=== PATIENT | male | born 1990 | race African-American/Black ===

== ENCOUNTER 2020-10-02 06:42 | Emergency (ER) | payer OTHER ==
[~2020-10-02] VITALS: Ht 190.5 cm; Wt 195.0 kg
--- NOTE | 2020-10-02 06:52 | NUR ---
PATIENT TO ER BED 6 BIBSELF C/O SOB SINCE 4x HR AGO. PATIENT STATES THAT HE IS HAVING AN ASTHMA ATTACK. PATIENT RECENTLY MOVED FROM [place] BUT RAN OUT OF INHALERS. PATIENT STATES THAT HE TRIED METHODS TO REDUCE ASTHMA ATTACK BUT UNSUCCESSFUL. PATIENT BREATHING ON ROOM AIT AT 98%. BILATERAL EXPIRATORY WHEEZES. CONNECTED TO THE MONITOR.
[2020-10-02] MEDS ORDERED: IPRATROPIUM NEB FS 0.5 MG/2.5 ML AMPUL.NEB ONE (07:00)
[2020-10-02] MEDS ORDERED: IPRATROPIUM NEB FS 0.5 MG/2.5 ML AMPUL.NEB NEB ONE (07:00)
[2020-10-02] MEDS ORDERED: ALBUTEROL FS 2.5 MG/3 ML VIAL.NEB ONE (07:00)
[2020-10-02] MEDS ORDERED: ALBUTEROL FS 2.5 MG/3 ML VIAL.NEB NEB ONE (07:00)
--- NOTE | 2020-10-02 07:00 | NUR ---
RT AT BEDSIDE
[2020-10-02] MEDS ORDERED: METH4TAB3 PO (07:22)
[2020-10-02] MEDS ORDERED: ALBU6.7H9 INH (07:22)
--- NOTE | 2020-10-02 07:33 | NUR ---
Patient in no respiratory distress, completed breathing tx. Ambulatory with steady gait. Patient discharged to home in stable condition. Written and verbal after care instructions given. Patient verbalizes understanding of instruction.
[2020-10-02 07:35] VITALS: BP 122/72
== END 2020-10-02 07:35 | disposition home or self-care (01) ==
LOC: ER 06:46
DX: J45.909 Unspecified asthma, uncomplicated (principal); Z79.899 Other long term (current) drug therapy